=== PATIENT | female | born 1940 | race Hispanic/Latino ===

== ENCOUNTER → 2017-11-17 | Outpatient (CLI) | payer OTHER | LOC: OIH 15:02 | PROVIDERS: ATTEND Internal Medicine | DX: Z13.6 Encounter for screening for cardiovascular disorders (principal) | CPT/HCPCS: 75571 ==

== ENCOUNTER → 2018-08-03 | Outpatient (CLI) | payer OTHER | END | disposition home or self-care (01) | LOC: OIH 15:20 | PROVIDERS: ATTEND Anesthesiology Pain Medicine | DX: M16.0 Bilateral primary osteoarthritis of hip (principal) | CPT/HCPCS: 73521 ==

== ENCOUNTER → 2020-04-27 | Outpatient (CLI) | payer OTHER | END | disposition home or self-care (01) | LOC: RAH 13:41 | PROVIDERS: ATTEND Internal Medicine | DX: Z12.31 Encounter for screening mammogram for malignant neoplasm of breast (principal); N64.89 Other specified disorders of breast | CPT/HCPCS: 77067 ==

== ENCOUNTER → 2021-02-08 | Outpatient (CLI) | payer MEDICARE | END | disposition home or self-care (01) | LOC: OIH 15:43 | PROVIDERS: ATTEND Anesthesiology Pain Medicine | DX: M25.561 Pain in right knee (principal); M25.562 Pain in left knee ==

== ENCOUNTER 2022-01-23 20:30 | Emergency (ER) | payer MEDICARE ==
[~2022-01-23] VITALS: Ht 165.1 cm; Wt 73.9 kg
[2022-01-23 22:46] VITALS: BP 150/64
== END 2022-01-23 23:21 | disposition home or self-care (01) ==
LOC: EDH 20:30
DX: S60.032A Contusion of left middle finger without damage to nail, initial encounter (principal); S09.90XA Unspecified injury of head, initial encounter; E11.9 Type 2 diabetes mellitus without complications; E78.00 Pure hypercholesterolemia, unspecified; I10 Essential (primary) hypertension; M19.90 Unspecified osteoarthritis, unspecified site; Z90.49 Acquired absence of other specified parts of digestive tract; W18.39XA Other fall on same level, initial encounter; Y93.89 Activity, other specified; Y92.89 Other specified places as the place of occurrence of the external cause; Y99.8 Other external cause status
CPT/HCPCS: 70450; 73140

== ENCOUNTER → 2022-11-09 | Outpatient (CLI) | payer MEDICARE | END | disposition home or self-care (01) | LOC: RESP 10:04 | PROVIDERS: ATTEND Internal Medicine | DX: R05.9 Cough, unspecified (principal); R06.02 Shortness of breath; J45.909 Unspecified asthma, uncomplicated; Z86.16 Personal history of COVID-19 | CPT/HCPCS: 94060; 94727; 94729 ==

== ENCOUNTER → 2023-06-30 | Outpatient (CLI) | payer MEDICARE | END | disposition home or self-care (01) | LOC: RAH 14:45 | PROVIDERS: ATTEND Anesthesiology Pain Medicine | DX: S83.242A Other tear of medial meniscus, current injury, left knee, initial encounter (principal); S83.282A Other tear of lateral meniscus, current injury, left knee, initial encounter; M25.562 Pain in left knee; M25.462 Effusion, left knee; M17.12 Unilateral primary osteoarthritis, left knee; X58.XXXA Exposure to other specified factors, initial encounter; Y93.89 Activity, other specified; Y92.89 Other specified places as the place of occurrence of the external cause; Y99.8 Other external cause status | CPT/HCPCS: 73721 ==

== ENCOUNTER → 2025-05-20 | Outpatient (CLI) | payer MEDICARE ==
--- NOTE | 2025-05-20 18:16 | HMCIMG ---
EXAM: CR Chest, 2 View. CLINICAL HISTORY: CHRONIC COUGH COMPARISON: None provided. FINDINGS: LUNGS: The lungs show no infiltrate or other acute finding. PLEURAL SPACES: No pleural effusion or pneumothorax. MEDIASTINUM: Cardiac size and mediastinal contours within normal limits. BONES: No aggressive appearing osseous lesion seen. IMPRESSION: No acute cardiopulmonary pathology is evident. /[place]
--- NOTE | 2025-05-20 18:19 | HMCIMG ---
EXAM: CR left Rib, 4 View. CLINICAL HISTORY: CHRONIC COUGH, PLEURODYNIA COMPARISON: None provided. FINDINGS: LUNGS: The visualized lungs appear essentially clear. PLEURAL SPACES: No pneumothorax evident. No pleural effusions. BONES: No visible acute rib fracture. Prior left rotator cuff tendon repair. IMPRESSION: No visible acute rib fracture. No pneumothorax. /[place]
== END | disposition home or self-care (01) ==
LOC: RAH 15:30
PROVIDERS: ATTEND Internal Medicine
DX: R05.3 Chronic cough (principal); R07.81 Pleurodynia
CPT/HCPCS: 71046; 71100